=== PATIENT | female | born 1930 | race African-American/Black ===

== ENCOUNTER 2016-04-25 23:46 | Inpatient (IN) | payer MEDICARE, BC ==
[~2016-04-25] VITALS: Ht 152.4 cm; Wt 68.0 kg
[2016-04-26 00:22] LABS: BASO % 1 % (0-3); EOS % 0 % (0-3); HEMATOCRIT 39.1 % (36.0-47.0); HEMOGLOBIN 12.7 g/dL (12.0-15.5); LYMPH # 0.5 x10^3/uL (1.0-4.8); LYMPH % 7 % (24-48); MEAN CORPUSCULAR HEMOGLOBIN 29 pg (25-35); MEAN CORPUSCULAR HGB CONC 33 g/dL (31-37); MEAN CORPUSCULAR VOLUME 90 fL (79-100); MONO % 9 % (0-9); NEUT % 83 % (31-73); PLATELET COUNT 192 x10^3/uL (140-400); RED BLOOD COUNT 4.35 x10^6/uL (3.50-5.40); RED CELL DISTRIBUTION WIDTH 14.3 % (11.5-14.5); WHITE BLOOD COUNT 7.4 x10^3/uL (4.0-11.0)
[2016-04-26 00:32] LABS: CALCIUM 9.3 mg/dL (8.5-10.1); CREATININE 0.8 mg/dL (0.6-1.0); GFR 67.8; POTASSIUM 3.4 mmol/L (3.5-5.1)
[2016-04-26 00:33] LABS: PROTHROMBIN TIME PATIENT 12.9 SEC (11.7-14.0)
[2016-04-26 00:38] LABS: ALBUMIN 3.5 g/dL (3.4-5.0); ALBUMIN/GLOBULIN RATIO 0.9 (1.0-1.7); TOTAL BILIRUBIN 0.6 mg/dL (0.2-1.0); TOTAL PROTEIN 7.3 g/dL (6.4-8.2)
[2016-04-26 01:01] LABS: OBC FLU VALID
[2016-04-26 01:58] LABS: BILIRUBIN,URINE SMALL (NEG); GLUCOSE,URINE NEGATIVE (NEG); NITRITE,URINE NEGATIVE (NEG); PH,URINE 5.5; PROTEIN,URINE NEGATIVE (NEG-TRACE)
--- NOTE | 2016-04-26 01:59 | ED.ADGEN ---
Past Medical History Past Medical History: Diabetes-Type II, Hypertension Additional Past Medical Histor: SEVERE AORTIC STENOSIS Past Surgical History: Hysterectomy, Other Additional Past Surgical Histo: PARTIAL THYROIDECTOMY Alcohol Use: None Drug Use: None Adult General Chief Complaint Chief Complaint: FEVER HPI HPI Patient is a 86 year old woman, history of type 2 diabetes mellitus, severe aortic stenosis, hypertension, who presents emergency Department with complaint of generalized weakness, malaise, and cough 2 days, with temperature to 102.4 at home. Patient presents the emergency department with her son, has not received a flu vaccination this year, her pneumonia vaccinations up-to-date. She denies any nausea or vomiting, states she's felt generally unwell, and had a nonproductive cough. No sick contacts or exposures, no swelling extremities, no chest pain, no shortness of breath. No focal weakness numbness or tingling. No injuries. Patient received Tylenol shortly before arrival in the ED, at this time her temperature is 101.1. Review of Systems Review of Systems Constitutional: Fever and generalized malaise. Eyes: Denies change in visual acuity. [] HENT: Denies nasal congestion or sore throat. [] Respiratory: Nonproductive cough, no shortness of breath. Cardiovascular: Denies chest pain or edema. [] GI: Denies abdominal pain, nausea, vomiting, bloody stools or diarrhea. [] : Denies dysuria. [] Musculoskeletal: Denies back pain or joint pain. [] Integument: Denies rash. [] Neurologic: Denies headache, focal weakness or sensory changes. [] Endocrine: Denies polyuria or polydipsia. [] Lymphatic: Denies swollen glands. [] Psychiatric: Denies depression or anxiety. [] Current Medications Current Medications Current Medications Medications (Trade) Dose Ordered Sig/Neetu Start Time Stop Time Status Last Admin Dose Admin Albuterol/ Ipratropium (Duoneb) 3 ml 1X ONCE 04/26/16 03:00 04/26/16 03:01 DC Azithromycin 250 ml @ 250 mls/hr 1X ONCE 04/26/16 03:00 04/26/16 03:59 Azithromycin/ Sodium Chloride (Zithromax/Iv Sodium Chloride 0.9% 250ml) 250 ml @ 250 mls/hr Q24H 04/26/16 22:00 04/29/16 21:59 Ceftriaxone Sodium 1 gm/ Sodium Chloride 50 ml @ 100 mls/hr Q24H 04/26/16 23:00 Ceftriaxone Sodium (Rocephin 1gm Ivpb For Omni) 50 ml @ 100 mls/hr 1X ONCE 04/26/16 03:00 04/26/16 03:29 Oseltamivir Phosphate 30 mg 30 mg 1X ONCE 04/26/16 03:00 04/26/16 03:01 DC Potassium Chloride 20 meq 20 meq 1X ONCE 04/26/16 03:00 04/26/16 03:01 DC Sodium Chloride (Iv Sodium Chloride 0.9% 1000ml Bag) 1,000 ml @ 75 mls/hr 1X ONCE 04/26/16 03:00 04/26/16 16:19 Allergies Allergies Allergies Coded Allergies Type Severity Reaction Last Updated Verified No Known Drug Allergies 04/26/16 No Physical Exam Physical Exam Constitutional: Well developed, well nourished, no acute distress, non-toxic appearance. [] HENT: Normocephalic, atraumatic, bilateral external ears normal, oropharynx moist, no oral exudates, nose normal. [] Eyes: PERRLA, EOMI, conjunctiva normal, no discharge. [] Neck: Normal range of motion, no tenderness, supple, no stridor. [] Cardiovascular:Heart rate regular rhythm, S1, S2, 3 out of 5 systolic murmur, no gallops. No rubs. [] Lungs & Thorax: Patient with coarse breath sounds noted at the bases bilaterally. No wheezing, no rales.] Abdomen: Bowel sounds normal, soft, no tenderness, no masses, no rebound, rigidity, no guarding, no pulsatile masses. [] Skin: Warm, dry, no erythema, no rash. [] Back: No tenderness, no CVA tenderness. [] Extremities: No tenderness, no cyanosis, no clubbing, ROM intact, no edema. Negative Homans sign. [] Neurologic: Alert and oriented X 3, normal motor function, normal sensory function, no focal deficits noted. [] Psychologic: Affect normal, judgement normal, mood normal. [] Current Patient Data Vital Signs Vital Signs Date Time Temp Pulse Resp B/P Pulse Ox O2 Delivery O2 Flow Rate FiO2 04/25/16 23:55 100.1 90 23 173/79 94 Room Air 100.1 Lab Values Laboratory Tests Test 04/26/16 00:01 04/26/16 00:05 04/26/16 01:50 Influenza Type A Antigen Positive (NEGATIVE) Influenza Type B Antigen Negative (NEGATIVE) White Blood Count 7.4x10^3/uL (4.0-11.0) Red Blood Count 4.35x10^6/uL (3.50-5.40) Hemoglobin 12.7g/dL (12.0-15.5) Hematocrit 39.1% (36.0-47.0) Mean Corpuscular Volume 90fL (79-100) Mean Corpuscular Hemoglobin 29pg (25-35) Mean Corpuscular Hemoglobin Concent 33g/dL (31-37) Red Cell Distribution Width 14.3% (11.5-14.5) Platelet Count 192x10^3/uL (140-400) Neutrophils (%) (Auto) 83% (31-73) H Lymphocytes (%) (Auto) 7% (24-48) L Monocytes (%) (Auto) 9% (0-9) Eosinophils (%) (Auto) 0% (0-3) Basophils (%) (Auto) 1% (0-3) Neutrophils # (Auto) 6.1x10^3uL (1.8-7.7) Lymphocytes # (Auto) 0.5x10^3/uL (1.0-4.8) L Monocytes # (Auto) 0.7x10^3/uL (0.0-1.1) Eosinophils # (Auto) 0.0x10^3/uL (0.0-0.7) Basophils # (Auto) 0.0x10^3/uL (0.0-0.2) Prothrombin Time 12.9SEC (11.7-14.0) Prothrombin Time INR 1.0 (0.8-1.1) PTT 30SEC (24-38) Sodium Level 138mmol/L (136-145) Potassium Level 3.4mmol/L (3.5-5.1) L Chloride Level 100mmol/L (98-107) Carbon Dioxide Level 27mmol/L (21-32) Anion Gap 11 (6-14) Blood Urea Nitrogen 21mg/dL (7-20) H Creatinine 0.8mg/dL (0.6-1.0) Estimated GFR (Cockcroft-Gault) 67.8 BUN/Creatinine Ratio 26 (6-20) H Glucose Level 167mg/dL (70-99) H Lactic Acid Level 0.8mmol/L (0.4-2.0) Calcium Level 9.3mg/dL (8.5-10.1) Total Bilirubin 0.6mg/dL (0.2-1.0) Aspartate Amino Transferase (AST) 17U/L (15-37) Alanine Aminotransferase (ALT) 13U/L (14-59) L Alkaline Phosphatase 56U/L (46-116) Troponin I Quantitative < 0.017ng/mL (0.000-0.055) Total Protein 7.3g/dL (6.4-8.2) Albumin 3.5g/dL (3.4-5.0) Albumin/Globulin Ratio 0.9 (1.0-1.7) L Urine Collection Type Unknown Urine Color Yellow Urine Clarity Cloudy Urine pH 5.5 Urine Specific [place] 1.015 Urine Protein Negativemg/dL (NEG-TRACE) Urine Glucose (UA) Negativemg/dL (NEG) Urine Ketones (Stick) Tracemg/dL (NEG) Urine Blood Small (NEG) Urine Nitrite Negative (NEG) Urine Bilirubin Small (NEG) Urine Urobilinogen Dipstick 1.0mg/dL (0.2 mg/dL) Urine Leukocyte Esterase Small (NEG) Urine RBC Occ/HPF (0-2) Urine WBC 5-10/HPF (0-4) Urine Squamous Epithelial Cells Many/LPF Urine Bacteria Many/HPF (0-FEW) Urine Mucus Mod/LPF Laboratory Tests 04/26/16 00:05 Laboratory Tests 04/26/16 00:05 EKG EKG EC: Sinus rhythm with occasional PVCs noted, left axis deviation, left ventricular hypertrophy, QTC of 425, WI 154, QRS of 106, abnormal ECG, no ST elevations or depressions identified, does not meet STEMI criteria. As interpreted by me. [] Radiology/Procedures Radiology/Procedures X-ray: One view: Patient with increased interstitial markings, possible atelectasis versus infiltrate in the right lung base. Abnormal x-ray, viral. As interpreted by me. Course & Med Decision Making Course & Med Decision Making Pertinent Labs and Imaging studies reviewed. (See chart for details) Patient's laboratory studies will evidence of mild dehydration, the lactic is within normal limits. No gross ptosis noted, however patient is noted to have increased initial markings, and a positive flu a, concern for possible right lower lobe infiltrate, may be viral, but in the setting of high fever a 86-year- old woman, after discussion with patient and family will admit and will cover with a dose of antibodies at this time, Tamiflu, IV fluids. Patient is agreeable for admission to the hospital, mildly tachycardic, has received DuoNeb , ordered community-acquired pneumonia antibiotics along with gentle hydration. Admit to Dr. Earl of internal medicine, full admission to the medical telemetry floor for close monitoring, continue Tamiflu, bridge orders entered Dragon Disclaimer Dragon Disclaimer This electronic medical record was generated, in whole or in part, using a voice recognition dictation system. Departure Disposition: ADMITTED INPATIENT Admitting Physician: Mariposa Earl Condition: IMPROVED JUAN BURNHAM DO Apr 26, 2016 01:59
[2016-04-26 02:08] LABS: BACTERIA,URINE MANY /HPF (0-FEW); RBC,URINE OCC /HPF (0-2); SQUAMOUS EPITHELIAL CELL,UR MANY /LPF
--- NOTE | 2016-04-26 02:13 | EKG ---
[facility] [address] [place] [address] Test Date: 2016-04-26 Test Time: 00:19:28 Pat Name: CARLOS BECKFORD Department: Room: Gender: F Data Analysis Intern: : 1930 Requested By: JUAN BURNHAM Order Number: [id number] Reading MD: Measurements Intervals [place] Rate: 80 P: 44 DE: 164 QRS: -28 QRSD: 106 T: 38 QT: 368 QTc: 428 Interpretive Statements SINUS RHYTHM VENTRICULAR PREMATURE COMPLEX(ES) LEFTWARD AXIS LVH WITH REPOLARIZATION ABNORMALITY ABNORMAL ECG RI6.01 No previous ECG available for comparison
[2016-04-26] MEDS ORDERED: IPRATRPIUM/ALBUTEROL 0.5/2.5MG 3 ML NEBU. NEB ONE (03:00)
[2016-04-26] MEDS ORDERED: POTASSIUM CHLORIDE 20 MEQ/15 ML ORAL LIQUID. PO ONE (03:00)
[2016-04-26] MEDS ORDERED: IV NORMAL SALINE 1000ML BAG 1,000 ML IV ONE (03:00)
[2016-04-26] MEDS ORDERED: CEFTRIAXONE 1GM IVPB FOR OMNI 50 ML IV ONE (03:00)
[2016-04-26] MEDS ORDERED: OSELTAMIVIR 30 MG CAPSULE PO ONE (03:00)
[2016-04-26] MEDS ORDERED: AZITHRMYCN 500MG IVPB FOR OMNI 250 ML IV ONE (03:00)
[2016-04-26 04:00] VITALS: BP 147/72
[2016-04-26 07:30] VITALS: BP 154/54
--- NOTE | 2016-04-26 08:01 | ACF ---
Admit Criteria Forms Admit Criteria Forms Admit Criteria Forms FEVER Clinical Indications for Inpatient Care (Place 'X' for any and all applicable criteria): Ongoing inpatient care may be indicated for fever with ANY ONE of the following[ D] (5)(27)(28)(29)(30)(31): [ ]I. Bacteremia [X]II. Evidence of significant systemic illness as indicated by ANY ONE of the following: [ ]a) Persistently high temperatures greater than 103.1 degrees F ( 39.5 degrees C) (oral) [ ]b) New-onset hypoxia [X]c) Hemodynamic instability [ ]d) Mental status changes [ ]e) Decreased urine output due to developing renal insufficiency [ ]f) New focal neurologic deficit (eg, stroke) [ ]g) Seizures [ ]h) Rigors [ ]i) Dehydration or hypovolemia [ ]j) Inadequate oral intake [ ]III. Patient in the immediate postoperative period with ANY ONE of the following (E)(23)(24): [ ]a) Evidence of specific localizing infection requiring ongoing inpatient evaluation or treatment (eg,abscess, severe pneumonia, wound infection ) [ ]b) Known or suspected cause of fever requiring ongoing inpatient evaluation or treatment (eg, DVT) [ ]c) Evidence of malignant hyperthermia (eg, unexplained tachycardia and muscle rigidity after depolarizing muscular blocking agent or inhaled anesthetic agent) [ ]IV. Suspected cause requiring acute care (eg, endocarditis, meningitis) [ ]V. High suspicion of bacteremia as indicated by severe constitutional symptoms in patient at high risk as indicated by ANY ONE of the following: [ ]a) Immunocompromised state [D](22) [ ]b) Age <3 years or >65 years [ ]c) Severe comorbidities (eg, poorly controlled diabetes, severe COPD) [ ]. High suspicion for fungal infection as indicated by ANY ONE of the following (22)(25): [ ]a) Febrile neutropenia (WBC <500/mm3 (0.5 X 109/L)) for >4 days despite broad spectrum antibiotics [ ]b) Imaging findings suggestive of fungal infection [ ]c) Immunocompromised state [ ]d) Immunocompromised patient colonized with Aspergillus species [ ]VII. Evidence of infection of medical devices such as implanted catheters or exposed hardware [ ]VIII. Suspected neuroleptic malignant syndrome as evidenced by ALL of the following (15): [ ]a) Recent use of neuroleptic medication (eg, haloperidol, prochlorperazine, metoclopramide) [ ]b) New-onset muscle rigidity Extended stay beyond goal length of stay for primary condition may be needed until ALL of the following are present(16)(17)(18)(19)(20)(21): [ ]a) Temperature status acceptable as indicated by ANY ONE of the following: [ ]i) Temp <38.1C (100.5 F) (oral) [ ]ii) Temp as expected for disease process and care performable at next level of care [ ]b) Hemodynamic stability [ ]c) Cultures negative or infection identified and under adequate treatment [ ]d) Behavior or mental status abnormalities absent or manageable at lower level of care (Also use Mental Status Change Criteria Form) for further information. [ ]e) Medical comorbidities absent or manageable at a lower level of care The original [employer] content created by [employer] has been revised. The portions of the content which have been revised are identified through the use of italic text or in bold, and [facility] has neither reviewed nor approved the modified material. All other unmodified content is copyright [employer]. Please see references footnoted in the original [facility] [employer] edition 2016 ELIAS AYALA Apr 26, 2016 08:01
--- NOTE | 2016-04-26 08:11 | RAD ---
Indication fever. Protocol study. A single view of the chest was obtained. No prior imaging is available. There is mild cardiomegaly. There is no gross congestive heart failure. A focal infiltrate is not seen. There is a probable granuloma in the left upper lobe. Significant pleural fluid is not present. There is no pneumothorax. IMPRESSION: Mild cardiomegaly. No acute or focal process is seen in the chest
[2016-04-26 10:20] VITALS: BP 160/61
[2016-04-26] MEDS ORDERED: GUAIFENESIN ER 600 MG TABLET.ER PO PRN (13:30)
[2016-04-26] MEDS ORDERED: HYDR12.58 PO (13:35)
[2016-04-26] MEDS ORDERED: LOSA100T6 PO (13:35)
[2016-04-26] MEDS ORDERED: BYSTOLIC20 MG PO (13:35)
[2016-04-26] MEDS ORDERED: LEVO75TA PO (13:35)
[2016-04-26] MEDS ORDERED: GINK60CA7 PO (13:35)
[2016-04-26] MEDS ORDERED: CHOL500051 PO (13:35)
[2016-04-26] MEDS ORDERED: METF500T4 PO (13:35)
[2016-04-26 15:20] VITALS: BP 135/61
--- NOTE | 2016-04-26 16:48 | HP ---
ADMIT DATE: 04/26/2016 CHIEF COMPLAINT: Fever, influenza. HISTORY OF PRESENT ILLNESS: The patient is an 86-year-old -[place] woman with past medical history of severe aortic stenosis, diabetes mellitus, who presented to the Emergency Room after being found by her son at home with a fever of over 102, generalized weakness and confusion. On further questioning, she apparently had been coughing for the past couple of days, was weak and does not remember further details herself. Son actually lives further away and was visiting as per his regular schedule. She denies any nausea or vomiting and does not recall any sick contacts. Denies any shortness of breath or chest pain. In the Emergency Room, she was diagnosed with influenza A and admitted. PAST MEDICAL HISTORY: Severe aortic stenosis, regularly monitored at , diabetes mellitus, hypertension, status post partial thyroidectomy 20 years ago (benign), status post hysterectomy. FAMILY HISTORY: Noncontributory. SOCIAL HISTORY: Lives by herself, never smoked. No toxic habits. ALLERGIES: No known drug allergies. REVIEW OF SYSTEMS: The patient relates that she is feeling great. Does not remember why she was here, does not remember how she ended up with her pants on in bed. She is, however, aware that her memory is poor and that she is a bit confused, which causes some anxiety. She denies any symptoms in rest of organ system review. PHYSICAL EXAMINATION: VITAL SIGNS: Currently show blood pressure of 160/61, heart rate of 83, respiratory rate 20. She is afebrile. GENERAL: This is an 86-year-old -[place] woman, very pleasant, awake, alert, in no acute distress. Memory is severely impaired. HEENT: Shows no scleral icterus. Oral mucosa is pink and moist. NECK: Supple. LUNGS: Clear to auscultation bilaterally. CARDIOVASCULAR: Regular rate and rhythm with faint murmur or gallop. ABDOMEN: Has positive bowel sounds, soft, nontender. EXTREMITIES: Show no edema. SKIN: Warm, soft and dry without any rash. LABORATORY DATA: CBC from today shows a WBC of 7.4, hemoglobin 12.7, platelets of 192. Chemistries with a BUN and creatinine of 21 and 0.8, potassium 3.4. LFTs within normal, albumin at 3.5, glucose fingersticks 130 and 167. Urine with 5-10 WBC and many bacteria. Serology for influenza positive for A. IMAGING STUDIES: Chest x-ray shows mild cardiomegaly, no acute focal process in the chest. ASSESSMENT AND PLAN: The patient is an 86-year-old woman presenting with increased confusion, fevers, was now diagnosed with influenza and mild respiratory symptoms as well as suspected urosepsis. She has been started on ceftriaxone as well as Tamiflu. We will continue those as per protocol. Await urine culture to allow limitation of broad spectrum antibiotics. We will continue gentle fluid hydration given severe aortic stenosis. She seems to be doing well from all other standpoints. Diabetes is well controlled at this time, we will continue home regimen and insulin sliding scale monitoring. JENNIFER PEÑA MD DR: YOSHI/nts JOB#: [id number] / [id number] SELENA
[2016-04-26 19:41] VITALS: BP 177/79
[2016-04-26] MEDS ORDERED: AZITHROMYCIN 500 MG in IV NORMAL SALINE 250ML 250 ML IV SCH (22:00)
[2016-04-26] MEDS: METOPROLOL TART IMMED RELEASE 50 MG TABLET PO SCH (22:15)
[2016-04-26] MEDS: OSELTAMIVIR 30 MG CAPSULE PO SCH (22:16)
[2016-04-26 22:47] VITALS: BP 123/55
[2016-04-26] MEDS: CEFTRIAXONE SODIUM 1 GM in IV NORMAL SALINE 50ML 50 ML IV SCH (23:00)
[2016-04-27 07:20] VITALS: BP 161/55
[2016-04-27] MEDS ORDERED: LEVOTHYROXINE 75 MCG TABLET PO SCH (07:30)
[2016-04-27] MEDS: METOPROLOL TART IMMED RELEASE 50 MG TABLET PO SCH (08:18)
[2016-04-27] MEDS: OSELTAMIVIR 30 MG CAPSULE PO SCH (08:18)
[2016-04-27] MEDS: CEFTRIAXONE SODIUM 1 GM in IV NORMAL SALINE 50ML 50 ML IV SCH (08:23)
[2016-04-27] MEDS ORDERED: CHOLECALCIFEROL (VITAMIN D3) 1,000 UNIT TABLET PO SCH (09:00)
[2016-04-27] MEDS ORDERED: LOSARTAN POTASSIUM 50 MG TABLET. PO SCH (09:00)
[2016-04-27] MEDS ORDERED: HYDROCHLOROTHIAZIDE 25 MG TABLET PO SCH (09:00)
[2016-04-27] MEDS ORDERED: METFORMIN 500 MG TABLET. PO SCH (09:00)
[2016-04-27] MEDS ORDERED: DEXTROSE 50% 25 GM / 50ML DISP.SYRIN. IV PRN (09:15)
[2016-04-27] MEDS ORDERED: ONDANSETRON PF 4 MG/2 ML VIAL. IV PRN (09:15)
[2016-04-27] MEDS ORDERED: ACETAMINOPHEN 500 MG TABLET PO PRN (09:15)
[2016-04-27 10:45] VITALS: BP 162/78
[2016-04-27] MEDS ORDERED: INSULIN ASPART 300 UNITS/3 ML INSULN.PEN SQ SCH (12:00)
--- NOTE | 2016-04-27 12:23 | EKG ---
[facility] [address] [place] [address] Test Date: 2016-04-26 Test Time: 00:21:53 Pat Name: CARLOS BECKFORD Department: Room: [facility] Gender: F Vp Production: : 1930 Requested By: COLIN DUGAN Order Number: [id number] Reading MD: Measurements Intervals [place] Rate: 77 P: 52 MA: 154 QRS: -28 QRSD: 106 T: 31 QT: 374 QTc: 425 Interpretive Statements SINUS RHYTHM VENTRICULAR PREMATURE COMPLEX(ES) LEFTWARD AXIS LEFT VENTRICULAR HYPERTROPHY ABNORMAL ECG RI6.01 No previous ECG available for comparison
[2016-04-27] MEDS ORDERED: CIPR500T94 PO (12:33)
[2016-04-27] MEDS ORDERED: OSEL30CA PO (12:33)
--- NOTE | 2016-04-27 12:40 | PDOC3 ---
Discharge Summary Visit Information Date of Admission: Apr 26, 2016 Date of Discharge: Apr 27, 2016 Admitting Diagnosis Comment: Influenza UTI, GNR , chronic stable DM, chronic stable Final Diagnosis Problems Medical Problems: (1) Dehydration Status: Acute (2) Influenza Status: Acute Brief Hospital Course Allergies Allergies Coded Allergies Type Severity Reaction Last Updated Verified No Known Drug Allergies 04/26/16 No Vital Signs Vital Signs Date Time Temp Pulse Resp B/P Pulse Ox O2 Delivery O2 Flow Rate FiO2 04/27/16 10:45 96.6 62 18 162/78 96 Room Air 96.6 Lab Results Laboratory Tests Test 04/26/16 00:01 04/26/16 00:05 04/26/16 01:50 04/26/16 07:47 Influenza Type A Antigen Positive (NEGATIVE) Influenza Type B Antigen Negative (NEGATIVE) White Blood Count 7.4x10^3/uL (4.0-11.0) Red Blood Count 4.35x10^6/uL (3.50-5.40) Hemoglobin 12.7g/dL (12.0-15.5) Hematocrit 39.1% (36.0-47.0) Mean Corpuscular Volume 90fL (79-100) Mean Corpuscular Hemoglobin 29pg (25-35) Mean Corpuscular Hemoglobin Concent 33g/dL (31-37) Red Cell Distribution Width 14.3% (11.5-14.5) Platelet Count 192x10^3/uL (140-400) Neutrophils (%) (Auto) 83% (31-73) Lymphocytes (%) (Auto) 7% (24-48) Monocytes (%) (Auto) 9% (0-9) Eosinophils (%) (Auto) 0% (0-3) Basophils (%) (Auto) 1% (0-3) Neutrophils # (Auto) 6.1x10^3uL (1.8-7.7) Lymphocytes # (Auto) 0.5x10^3/uL (1.0-4.8) Monocytes # (Auto) 0.7x10^3/uL (0.0-1.1) Eosinophils # (Auto) 0.0x10^3/uL (0.0-0.7) Basophils # (Auto) 0.0x10^3/uL (0.0-0.2) Prothrombin Time 12.9SEC (11.7-14.0) Prothromb Time International Ratio 1.0 (0.8-1.1) Activated Partial Thromboplast Time 30SEC (24-38) Sodium Level 138mmol/L (136-145) Potassium Level 3.4mmol/L (3.5-5.1) Chloride Level 100mmol/L (98-107) Carbon Dioxide Level 27mmol/L (21-32) Anion Gap 11 (6-14) Blood Urea Nitrogen 21mg/dL (7-20) Creatinine 0.8mg/dL (0.6-1.0) Estimated GFR (Cockcroft-Gault) 67.8 BUN/Creatinine Ratio 26 (6-20) Glucose Level 167mg/dL (70-99) Lactic Acid Level 0.8mmol/L (0.4-2.0) Calcium Level 9.3mg/dL (8.5-10.1) Total Bilirubin 0.6mg/dL (0.2-1.0) Aspartate Amino Transf (AST/SGOT) 17U/L (15-37) Alanine Aminotransferase (ALT/SGPT) 13U/L (14-59) Alkaline Phosphatase 56U/L (46-116) Troponin I Quantitative < 0.017ng/mL (0.000-0.055) Total Protein 7.3g/dL (6.4-8.2) Albumin 3.5g/dL (3.4-5.0) Albumin/Globulin Ratio 0.9 (1.0-1.7) Urine Collection Type Unknown Urine Color Yellow Urine Clarity Cloudy Urine pH 5.5 Urine Specific [place] 1.015 Urine Protein Negativemg/dL (NEG-TRACE) Urine Glucose (UA) Negativemg/dL (NEG) Urine Ketones (Stick) Tracemg/dL (NEG) Urine Blood Small (NEG) Urine Nitrite Negative (NEG) Urine Bilirubin Small (NEG) Urine Urobilinogen Dipstick 1.0mg/dL (0.2 mg/dL) Urine Leukocyte Esterase Small (NEG) Urine RBC Occ/HPF (0-2) Urine WBC 5-10/HPF (0-4) Urine Squamous Epithelial Cells Many/LPF Urine Bacteria Many/HPF (0-FEW) Urine Mucus Mod/LPF Glucose (Fingerstick) 130mg/dL (70-99) Test 04/26/16 11:21 04/26/16 16:10 04/26/16 20:45 04/27/16 07:24 Glucose (Fingerstick) 167mg/dL (70-99) 169mg/dL (70-99) 144mg/dL (70-99) 117mg/dL (70-99) Test 04/27/16 11:34 Glucose (Fingerstick) 122mg/dL (70-99) Laboratory Tests Test 04/26/16 16:10 04/26/16 20:45 04/27/16 07:24 04/27/16 11:34 Glucose (Fingerstick) 169mg/dL (70-99) 144mg/dL (70-99) 117mg/dL (70-99) 122mg/dL (70-99) Brief Hospital Course Ms. Stinson is a 86 old AA female who was admitted for UTIa nd influenza. Urine cx grew GNR No PT needs HAs very high fcn for 86 y/o Son is a MD Pt seen and examined Dw family at bedside Rx for Cipro and tamiflu given Dc time 31 mins > 50% counselling Discharge Information Condition at Discharge: Improved, Stable Disposition/Orders: D/C to Home Scheduled Cholecalciferol (Vitamin D3) (Vitamin D) 2,000 UNIT PO DAILY (Reported) Hydrochlorothiazide (Hydrochlorothiazide Tablet) 25 MG PO DAILY (Reported) Levothyroxine Sodium (Synthroid) 75 MCG PO DAILYAC (Reported) Losartan Potassium (Losartan Potassium) 100 MG PO DAILY (Reported) Metformin Hcl (Metformin Hcl) 1 TAB PO DAILY (Reported) Nebivolol Hcl (Bystolic) 20 MG PO DAILY (Reported) Miscellaneous Medications Ginkgo Biloba [place] Extract (Ginkgo Biloba) 30 MG PO (Reported) VINCENT ARROYO MD Apr 27, 2016 12:40
== END 2016-04-27 13:45 | disposition home or self-care (01) | DRG 871 ==
LOC: ER 23:46 → 5 NORTH 04-26 03:17
PROVIDERS: ADMIT Internal Medicine; ATTEND Internal Medicine
DX: A41.9 Sepsis, unspecified organism (principal); G93.41 Metabolic encephalopathy; N39.0 Urinary tract infection, site not specified; J10.1 Influenza due to other identified influenza virus with other respiratory manifestations; E11.9 Type 2 diabetes mellitus without complications; I35.0 Nonrheumatic aortic (valve) stenosis; I10 Essential (primary) hypertension; Z90.710 Acquired absence of both cervix and uterus
CPT/HCPCS: 36415; 71010; 80053; 81001; 82947; 83605; 84484; 85027; 85610; 85730; 87040; 87086; 87186; 87804; 93005; 96365; J0456; J0690; J0696; J1815; J7030; J7050; 99285-25